=== PATIENT | male | born 1990 | race Caucasian/White ===

== ENCOUNTER 2023-06-23 17:24 | Emergency (ER) | payer OTHER, SELFPAY ==
[2023-06-23 17:25] VITALS: BP 140/100
--- NOTE | 2023-06-23 18:00 | ED.GENMED ---
History of Present Illness
General
Chief Complaint: Musculo-Skeletal Complaint
Source: patient and significant other
Time Seen by Provider: 06/23/23 17:50
Travel History
Have you had any contact with someone who has COVID-19?: No
Do you have any symptoms of coronavirus? Fever > 100 degrees, chills, cough, shortness of breath, sore throat, loss of taste or smell, muscle aches, or headache?: No
History of Present Illness
History of Present Illness:
32-year-old male who presents with a right shoulder injury. Patient was lifting some heavy trying to push it up when he developed pain in his right shoulder acutely. Patient states that hurts to move it at all. He states the pain is excruciating.
It is mostly just around the right shoulder rating up toward his trapezius and down toward his elbow. He denies a fall. No fevers.
Past History
Past History
ED Past Medical History: Psychiatric
Phy Exam
Physical Exam
Physical Exam:
CONSTITUTIONAL Vital signs reviewed, Patient alert and oriented to person, place and time. Well-appearing
HEAD atraumatic, normocephalic.
EYES eyelids normal to inspection, Extraocular muscles intact, Conjunctiva normal, Sclera normal.
NECK normal range of motion, Trachea midline, no jugular venous distention.
RESP no respiratory distress
BACK No obvious deformities
UPPER EXTREMITY normal distal pulses. Normal gross sensation. No obvious swelling or joint effusion but limited range of motion in all planes. Only able to abduct 10 degrees. Only able to externally rotate 10 degrees. Unable to flex due to
pain. No palpable deformities of the clavicle. No midline cervical tenderness. He is able to pronate and supinate his forearm
LOWER EXTREMITY Gross range of motion normal, Gross motor strength normal
NEURO Speech normal, No focal motor deficits include, [place] coma scale 15, Memory normal, Cranial Nerves intact to screening exam.
SKIN Skin warm, dry, and normal in color.
PSYCHIATRIC Patient oriented to person place and time, Normal affect.
Course
Orders/Labs/Results
Orders:
Orders
06/23/23 17:26
Shoulder, Right 2 Views [CR Shoulder - Right Min 2 View] Urgent
Comment:
Reason For Exam: pain
Vital Signs
Initial and Last Documented VS:
Initial Vital Signs
Temp Pulse Resp BP Pulse Ox
97.8 F 88 18 140/100 100
06/23/23 17:25 06/23/23 17:25 06/23/23 17:25 06/23/23 17:25 06/23/23 17:25
Last Documented Vital Signs
Temp Pulse Resp BP Pulse Ox
97.8 F 88 18 140/100 100
06/23/23 17:25 06/23/23 17:25 06/23/23 17:25 06/23/23 17:25 06/23/23 17:25
MDM/Problems Addressed
MDM/Problems Addressed:
Shoulder injury
*Radiology
Radiology exam reviewed: all reviewed NAD by ED Provider
*Pulse Oximetry
Patient hypoxic: no
*Critical Care Note
Total Time (30-74mins, 75-104mins- exclusive of procedures): Not Applicable
Data Reviewed
Source: patient and significant other
Patient Management
Escalation/DeEscalation of care consider admission/obs:
Apply sling. Recommended outpatient orthopedic follow-up. Pectoralis is intact. Biceps tendon appears intact but will need MRI
ED Attending Note
-
Portions of this chart may have been created with voice recognition software.� Occasional wrong word or��sound alike� substitutions may have occurred due to the inherent limitations of voice recognition software.
Discharge Plan
Departure
Patient Disposition: Home (Routine Discharge)
Date of Disposition: 06/23/23
Time of Disposition: 18:04
Patient with high blood pressure during this ER visit?: Yes
Discharge Problem:
Injury of shoulder
Instructions: Shoulder Sprain (DC), How to Use a Shoulder Sling
Referrals:
Nikolai Lau MD [Active] -
Activity Restrictions/Additional Instructions:
Please rest and ice your injured shoulder. Please see orthopedics in the next 3 to 5 days for follow-up and reevaluation. Use ibuprofen and alternate with Tylenol for pain control.
Interventions
Interventions:
*Risk Screen - Suicide Last Done: 06/23/23 17:25
*General Assessment Last Done: 06/23/23 17:25
*Neglect/Abuse Screening Last Done: 06/23/23 17:25
*ED COVID-19 Vaccine History Last Done: 06/23/23 17:25
ED-Musculoskeletal Assessment Last Done: 06/23/23 17:50
[2023-06-23 18:13] VITALS: BP 146/97
== END 2023-06-23 18:14 | disposition home or self-care (01) ==
LOC: EMR 17:24
PROVIDERS: EMERGENCY PHYSICIAN Emergency Medicine; FAMILY PHYSICIAN Family Medicine
DX: S49.91XA Unspecified injury of right shoulder and upper arm, initial encounter (principal); X50.0XXA Overexertion from strenuous movement or load, initial encounter; R03.0 Elevated blood-pressure reading, without diagnosis of hypertension
CPT/HCPCS: 99283; 73030

== ENCOUNTER 2023-10-09 18:08 | Emergency (ER) | payer OTHER, SELFPAY ==
[2023-10-09 18:12] VITALS: BP 147/98
[2023-10-09 18:15] VITALS: BMI 24.9
[2023-10-09] MEDS: PERCOCET 5/325 2 TABLET PO (19:40)
--- NOTE | 2023-10-09 19:41 | ED.GENMED ---
History of Present Illness
General
Chief Complaint: Back Pain
Source: patient
Exam Limitations: none
Time Seen by Provider: 10/09/23 19:09
Nursing documentation reviewed up to this point in time: agreed with
History of Present Illness
History of Present Illness:
33 y/o M with h/o ADHD, anxiety
was lifting something heavy today at 2 pm and went to put it down and felt a pop in the mid lower back and sudden pain in his low back and into both hips
no radiation down leg
no weakness, numbness, tingling, incontinence
no h/o chrnoic back problems
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
pt is kneeling on the floor to be comfortable
pain is worse with movement
no abdomianl pain
Past History
Past History
ED Past Medical History: Psychiatric
Social History
Tobacco: Non-smoker
Alcohol: None
Drug: None
Personal:
Review of Systems
Review of Systems
Allergies reviewed?: Yes
All Other Systems: Not applicable
Phy Exam
Physical Exam
Physical Exam:
GENERAL: Alert , kneeling on his knees on the floor
HEAD: NCAT
NECK: no midline tenderness, active ROM intact, no paraspinal muscle tenderness;
CARDIAC: Regular rate and rhythm, no edema
LUNGS: Clear breath sounds bilaterally, no acute respiratory distress, no wheezes/rales/rhonchi
ABDOMEN: Soft, without focal tenderness, no r/g, no cvat, normal bowel sounds, nondistended
NEUROLOGICAL: Alert and oriented, no focal neuro deficits, CN intact, 5/5 strength, sensation intact, walks gingerly
SKIN: Warm and dry,
MUSCULOSKELETAL: No edema, well perfused.
Back: mild generalized lower back tenderness
mild si joint tendenress
neg straight leg raise b/l
normal strength and sensation distally
PSYCH: Normal and appropriate interaction.
Course
Orders/Labs/Results
Orders:
Orders
10/09/23 19:37
Oxycodone/Acetaminophen [Percocet 5/325] 2 tablet PO NOW STA
Lumbar Spine Complete, 4 View [CR Lumbar Spine Comp Min 4 Vw*] Urgent
Comment:
Reason For Exam: lower back pain, pop in back
Vital Signs
Initial and Last Documented VS:
Initial Vital Signs
Temp Pulse Resp BP Pulse Ox
98.1 F 119 17 147/98 98
10/09/23 18:12 10/09/23 18:12 10/09/23 18:12 10/09/23 18:12 10/09/23 18:12
Last Documented Vital Signs
Temp Pulse Resp BP Pulse Ox
98.1 F 81 18 140/95 100
10/09/23 18:12 10/09/23 20:31 10/09/23 20:31 10/09/23 20:31 10/09/23 20:31
MDM/Problems Addressed
Differential Diagnosis Includes:
lumbar strain, hdisc herniation, radiculopathy
MDM/Problems Addressed:
33 y/o M
adhd
otherwise healthy
lifted something heavy and when he went to put it down felt pop in the middle of his lower back
paininto both hips
not down legs, no numbness/tingling/weakness, incontience, fever
no ivda
uncofmrtoabel
limited ROM
neg straight leg raise, normal strength and sensation
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
screening xrays indep reviewed, neg, mild scolioisis
pain better with oxycodone x 2 doses
offeered steroids and tylenol, oxycodone prn severe pain
pt isn'tsure if steroids will make his anxiety worse so he will prob avoid them and do motrin instead.
no red flag sypmtoms
return precautions given
*Critical Care Note
Total Time (30-74mins, 75-104mins- exclusive of procedures): Not Applicable
ED Attending Note
-
Portions of this chart may have been created with voice recognition software.� Occasional wrong word or��sound alike� substitutions may have occurred due to the inherent limitations of voice recognition software.
Discharge Plan
Departure
Patient Disposition: Home (Routine Discharge)
Date of Disposition: 10/09/23
Time of Disposition: 20:44
Patient with high blood pressure during this ER visit?: Yes
Condition: Fair
Discharge Problem:
Lumbar strain
Instructions: Back Muscle Strain (DC)
Prescriptions:
New
prednisone 20 mg tablet
40 mg PO DAILY Qty: 10 0RF
oxycodone 5 mg tablet
5 mg PO Q8H PRN (Reason: Pain) Qty: 10 0RF
lidocaine 5 % adhesive patch,medicated
1 patch topical DAILY PRN (Reason: pain) Qty: 15 0RF
Referrals:
Cayden Zepeda, DO [Family Provider] - Follow up in 2-3 days
Stand Alone Forms: Return to Work
Activity Restrictions/Additional Instructions:
YOU COULD HAVE STRAINED THE MUSCLES IN YOUR LOWER BACK OR EVEN HERNIATED A DISC
YOU SHOULD AVOID LIFTING
TYLENOL 3 TIMES A DAY FOR PAIN
PREDNISONE ONCE A DAY 2 TABS IN THE MORNING FOR 5 DAYS - THIS IS ANTIINFLAMMATORY (YOU DO NOT NEED MOTRIN WHILE ON THIS)
LIDOCAINE PATCH 12 HOURS ON 12 HOURS OFF
OXYCODONE 5 MG EVERY 8 HOURS NEEDED FOR SEVERE PAIN, THIS IS A NARCOTIC,, NO ALCOHOL OR DRIVING ON THIS
FOLLOW UP WITH YUR DOCTOR
YOU MAY NEED FURHTER EVAULATION OR IMAGING OR PHYSICAL THERAPY
RETURN FOR: SEVERE PAIN, LEG WEAKNESS/NUMBNESS, INCONTINENCE OF URINE ,FEVER OR ANY CONCERNS
Interventions
Interventions:
*Risk Screen - Suicide Last Done: 10/09/23 18:15
*General Assessment Last Done: 10/09/23 18:12
*Neglect/Abuse Screening Last Done: 10/09/23 18:15
ED- Fall Risk Assessment Last Done: 10/09/23 18:15
*ED COVID-19 Vaccine History Last Done: 10/09/23 18:12
*Nursing Disposition Last Done: 10/09/23 20:55
ED-Musculoskeletal Assessment Last Done: 10/09/23 18:15
Discharge Date and Time
Discharge Date/Time: 10/09/23 20:56
Print Language: NIGERIEN
[2023-10-09 20:31] VITALS: BP 140/95
== END 2023-10-09 20:56 | disposition home or self-care (01) ==
LOC: EMR 18:08
PROVIDERS: EMERGENCY PHYSICIAN Emergency Medicine; FAMILY PHYSICIAN Family Medicine
DX: S39.012A Strain of muscle, fascia and tendon of lower back, initial encounter (principal); X50.0XXA Overexertion from strenuous movement or load, initial encounter; R03.0 Elevated blood-pressure reading, without diagnosis of hypertension
CPT/HCPCS: 99283; 72110

== ENCOUNTER 2023-12-12 18:51 | Emergency (ER) | payer OTHER, SELFPAY ==
[2023-12-12 18:53] VITALS: BP 162/70
[2023-12-12 19:03] VITALS: BMI 27.8
--- NOTE | 2023-12-12 19:05 | ED.GENMED ---
History of Present Illness
General
Chief Complaint: Seizure
Source: significant other
Exam Limitations: none
Time Seen by Provider: 12/12/23 18:53
History of Present Illness
History of Present Illness:
This is a 33 year old male that is brought in by ambulance with possible seizure. Girlfriend states that they were laying on the bed as they just had a child and the cat was laying on his side. States that he put his hands up above his head to pet
the cat and she looked over and he started to shake. States that she felt this was a seizure as her sister has them. States that this lasted 30 seconds and they he had heavy breathing and just was not there. Then after about another 30 second he was
more awake and tried to kiss her. Patient states that he felt like he just spaced out and like there was a wheel going around with colors. Told that when EMS got there he was confused for about 15 min longer. Told that he takes Adderall and he
had ran out as there is a shortage and he just got his medication and took a dose yesterday and today. Patient states that he has a headache and feels dizzy. Patient was not incontinent. Denies any fever, chills, chest pain, SOB, abd pain, nausea,
vomiting, diarrhea, urinary burning.
Past History
Past History
ED Past Medical History: Psychiatric (Anxiety, Depression); Negative Asthma, HTN, Hypercholesterolemia or NIDDM
ED Past Surgical History: None
Social History
Tobacco: Vaping
Alcohol: None
Drug: None
Personal: Single
Living: with family
Review of Systems
Review of Systems
All Other Systems: ROS reviewed and negative except as documented in HPI and ROS
Constitutional: Reports no symptoms; Denies fever or chills
EENT: Reports no symptoms
Respiratory: Reports no symptoms; Denies cough or trouble breathing
Cardiac: Reports no symptoms; Denies chest pain
ABD/GI: Reports no symptoms; Denies abdominal pain, nausea, vomiting or diarrhea
: Reports no symptoms; Denies dysuria, frequency or urgency
Musculoskeletal: Reports no symptoms
Skin: Reports no symptoms
Neurological: Reports dizzy, headache and other (Possible Seizure)
Psychiatric: Reports no symptoms
Phy Exam
General Physical Exam
General Presentation: well appearing and no apparent distress
General age: appears stated age
General Skin: warm and dry
General Habitus: normal
General Mental: alert
General Hydration: dry mucous membranes
ENT Exam
ENT Exam: TM's normal, pharynx normal and neck supple
Eye Exam
Eye Exam: EOMI
Cardiovascular Exam
Cardiovascular Exam: regular rate/rhythm, no edema, no murmur and normal peripheral pulses
Pulmonary Exam
Pulmonary Exam: lungs clear, no respiratory distress, no rales, chest non tender, no crackles, no rhonchi, no wheezing and no cough
Gastrointestinal Exam
Gastrointestinal Exam: normal bowel sounds, non tender, soft, no organomegaly, no pulsatile mass and non distended
Musculoskeletal Exam
Musculoskeletal Exam: full ROM and no edema
Skin Exam
Skin Exam: normal color, warm/dry, no rash and no petechia
Psychiatric Exam
Psychiatric Exam: normal mood/affect
Course
Orders/Labs/Results
Orders:
Orders
12/12/23 19:04
CT Head W/o Iv Contrast Urgent
Comment:
Reason For Exam: headache, dizziness
0.9% Sodium Chloride 1000 ml [Nss] 1,000 ml IV BOLUS
12/12/23 19:07
Complete Blood Count/With Diff Urgent
Comprehensive Metabolic Panel Urgent
Troponin I Urgent
12/12/23 19:10
Electrocardiogram (*1) Urgent
Reason for Study: Syncope
EKG- Treatment ONCE
12/12/23 20:43
Fentanyl, Urine Urgent
Urinalysis Reflex To Culture Urgent
Date Specimen was Collected: 12/12/23
Time Specimen was Collected: 20:33
Urine Drug Abuse Screen Urgent
Date Specimen was Collected: 12/12/23
Time Specimen was Collected: 20:33
Abnormal Lab Results
12/12/23 12/12/23
19:07 20:43
MCV 79.8 L fL
(80.0-94.0)
Abs Immat Gran (auto) 0.2 H 10^3/uL
(0-0.05)
Absolute Neuts (auto) 7.0 H 10^3/uL
(1.4-6.5)
Absolute Monos (auto) 1.0 H 10^3/uL
(0.1-0.6)
Immature Gran % 1.8 H %
(0-0.5)
Lymphocytes % 20.4 L %
(20.5-51.1)
Chloride 97 L mmol/L
(98-107)
Carbon Dioxide 14 L* mmol/L
(22-30)
BUN 22 H mg/dl
(9-20)
Creatinine 1.4 H mg/dL
(0.7-1.3)
Glucose 145 H mg/dl
(70-99)
Total Bilirubin 1.4 H mg/dl
(0.2-1.3)
AST 96 H U/L
(17-59)
ALT 262 H U/L
(0-50)
Total Protein 8.3 H g/dl
(6.3-8.2)
Albumin 5.5 H g/dl
(3.5-5.0)
Ur Amphetamines Screen Positive H
(Negative)
Urine Cocaine Screen Positive H
(Negative)
U Marijuana (THC) Screen Positive H
(Negative)
12/12/23 19:07
12/12/23 19:07
CHLORIDE SLIGHTLY LOW, carbon dioxide low (acidotic), dehydration, hyperglycemia, Total al slightly elevated. AST/ALT elevation, Albumin low, Urine drug positive for Cocaine, amphetamines and marijuana. Troponin 0.015, Urine negative for
infection.
Vital Signs
Initial and Last Documented VS:
Initial Vital Signs
Pulse Resp BP Pulse Ox
112 12 162/70 96
12/12/23 18:53 12/12/23 18:53 12/12/23 18:53 12/12/23 18:53
Last Documented Vital Signs
Pulse Resp BP Pulse Ox
77 14 130/76 97
12/12/23 21:00 12/12/23 21:00 12/12/23 21:00 12/12/23 21:00
Sales And Catering Coordinator consulted with Physician
Sales And Catering Coordinator consulted with physician?: Yes
Name of Physician Consulted: Dr. Marie
MDM/Problems Addressed
Differential Diagnosis Includes:
Seizure, vs syncope
MDM/Problems Addressed:
This is a 33 year old male that is brought in by ambulance with c/o seizure. Patient has no history of seizures. Girlfriend states that he was laying on the bed and put his hands up above his head. States that he started to shake for about 30
seconds. States that then he seemed that he was just starring and then after about another 30 seconds he came around and tried to kiss her. States that he was out of his Adderall and just got his medication yesterday and he started back on the
Adderall and has had 2 doses.
Will check labs. CT head, give IV fluids. ECG
Form filled out for the DMV. Back into see patient. Explained that the CT of his head was normal but his urine Drug is positive for Cocaine, Marijuana and Amphetamines. Explained that this could push patient into a seizure. Patient will be unable to
drive until he is cleared by the Neurologist. Patient to follow up with the Neurologist. Increase his water intake to 8-8oz glasses daily. Return with any concerns.
Chronic conditions affecting care:
NA
Acute Exacerbation and/or Progression of Chronic Illness:
NA
*Radiology
Radiology exam reviewed: radiology read reviewed (CT head-NO evidence of acute intracranial abnormality)
*Pulse Oximetry
Patient hypoxic: no
*Benefits Representative Interpretation
Rate: tachycardiac
Heart Rate: 108
Rhythm: sinus tachycardia
*Critical Care Note
Total Time (30-74mins, 75-104mins- exclusive of procedures): Not Applicable
ED Attending Note
-
Portions of this chart may have been created with voice recognition software.� Occasional wrong word or��sound alike� substitutions may have occurred due to the inherent limitations of voice recognition software.
Discharge Plan
Departure
Patient Disposition: Home (Routine Discharge)
Date of Disposition: 12/12/23
Time of Disposition: 22:06
Patient with high blood pressure during this ER visit?: Yes
Condition: Good
Covid-19: Not Applicable
Discharge Problem:
Seizure
Instructions: Seizures, Adult (DC), BLOOD PRESSURE
Prescriptions:
No Action
prednisone 20 mg tablet
40 mg PO DAILY Qty: 10 0RF
oxycodone 5 mg tablet
5 mg PO Q8H PRN (Reason: Pain) Qty: 10 0RF
lidocaine 5 % adhesive patch,medicated
1 patch topical DAILY PRN (Reason: pain) Qty: 15 0RF
Referrals:
Javier Rios MD [Active] - Follow up in 2-3 days
Cayden Zepeda DO [Family Provider] -
Activity Restrictions/Additional Instructions:
As discussed, your CT is negative for any acute process. Your Urine drug was positive for Cocaine, Amphetamines and marijuana. This could also cause you to have a seizure. You will be unable to drive until you are cleared by the neurologist. A form
was sent to the [facility]. Please stop the drugs. Please increase your water to 8-8oz glasses daily. IF YOU HAVE ANY FURTHER SEIZURE OR YOU HAVE ANY OTHER CONCERNS PLEASE RETURN TO THE EMERGENCY ROOM.
Interventions
Interventions:
*Risk Screen - Suicide Last Done: 12/12/23 19:03
*General Assessment Last Done: 12/12/23 19:03
*Neglect/Abuse Screening Last Done: 12/12/23 19:03
*ED COVID-19 Vaccine History Last Done: 12/12/23 19:03
ED- Cardiac Assessment Last Done: 12/12/23 19:04
ED- Neurological Assessment Last Done: 12/12/23 19:04
ED- Pulmonary Assessment Last Done: 12/12/23 19:04
Discharge Date and Time
Print Language: BURUNDIAN
[2023-12-12] MEDS: NSS 1000 IV (19:08)
[2023-12-12 19:18] LABS: % Basophils 0.6 % (0-2); % Immature Granulocytes 1.8 % (0-0.5); % Lymphocytes 20.4 % (20.5-51.1); % Monocytes 9.1 % (1.7-9.3); % Neutrophils 66.1 % (42.2-75.2); Absolute Basophils 0.1 10^3/uL (0-0.2); Absolute Eosinophils 0.2 10^3/uL (0-0.7); Absolute Immature Granulocytes 0.2 10^3/uL (0-0.05); Absolute Lymphocytes 2.2 10^3/uL (1.2-3.4); Hematocrit 42.4 % (39.0-52.0); Hemoglobin 14.4 g/dL (13.0-18.0); Mean Corpuscular Hgb 27.1 pg (27.0-31.0); Mean Corpuscular Volume 79.8 fL (80.0-94.0); Mean Platelet Volume 9.4 fL (7.4-10.4); Nucleated Red Blood Cells % 0 % (-); Platelet Count 349 10^3/uL (130-400); Red Blood Cell Count 5.31 10^6/uL (4.70-6.10); Red Cell Dist. Width 13.3 % (11.5-14.5); White Blood Cell Count 10.6 10^3/uL (4.8-10.8)
[2023-12-12 19:38] LABS: AST (SGOT) 96 U/L (17-59); Albumin 5.5 g/dl (3.5-5.0); Alkaline Phosphatase 76 U/L (38-126); Blood Urea Nitrogen 22 mg/dl (9-20); Carbon Dioxide 14 mmol/L (22-30); Chloride 97 mmol/L (98-107); Estimated Creatinine Clearance 81 ml/min; Glucose 145 mg/dl (70-99); Potassium 4.3 mmol/L (3.5-5.1); Sodium 140 mmol/L (135-145); Total Bilirubin 1.4 mg/dl (0.2-1.3); Total Protein 8.3 g/dl (6.3-8.2); eGFR > 60.00
[2023-12-12 19:40] LABS: ALT (SGPT) 262 U/L (0-50)
[2023-12-12 20:00] VITALS: BP 130/85
[2023-12-12 20:05] LABS: Troponin I 0.015 ng/ml
[2023-12-12 21:00] VITALS: BP 130/76
[2023-12-12 21:12] LABS: Urine Albumin Trace (Neg - Trace); Urine Bilirubin Negative (Negative); Urine Character Clear (Clear); Urine Color Yellow; Urine Glucose Negative (Negative); Urine Ketone Negative (Negative); Urine Leukocyte Negative (Negative); Urine Nitrite Negative (Negative); Urine Occult Blood Negative (Negative); Urine Specific Gravity 1.025 (<1.030); Urine Urobilinogen Negative (Neg - 1+)
[2023-12-12 21:37] LABS: Amphetamines Positive (Negative); Barbiturates Negative (Negative); Benzodiazepines Negative (Negative); Buprenorphine Negative (Negative); Cocaine Positive (Negative); Marijuana Positive (Negative); Methadone Negative (Negative); Methamphetamines Negative (Negative); Opiates Negative (Negative); Phencyclidine Negative (Negative); Tricyclic Antidepressants Negative (Negative)
[2023-12-12 21:57] LABS: Fentanyl, Urine Negative (Negative)
[2023-12-12 22:00] VITALS: BP 121/74
== END 2023-12-12 22:24 | disposition home or self-care (01) ==
LOC: EMR 18:51
PROVIDERS: Clinical Nurse Specialist Family Health; EMERGENCY PHYSICIAN Emergency Medicine; FAMILY PHYSICIAN Family Medicine
DX: R56.9 Unspecified convulsions (principal); F41.8 Other specified anxiety disorders; E86.0 Dehydration; F17.290 Nicotine dependence, other tobacco product, uncomplicated
CPT/HCPCS: 99284; 96360; 70450; 80053; 80306; 80307; 81003; 84484; 85025; 93005